=== PATIENT | male | born 1980 | race Caucasian/White ===

== ENCOUNTER 2016-06-21 21:23 | Emergency (ER) | payer OTHER ==
[2015-07-10 17:38] VITALS: BP 100/60
[2016-06-21] MEDS ORDERED: IV NORMAL SALINE 1,000ML 1,000 ML ONE (21:35)
[2016-06-21] MEDS ORDERED: fentaNYL PF 100 MCG/2 ML VIAL ONE ×2 (21:35→22:00)
[2016-06-21] MEDS ORDERED: IV NORMAL SALINE 1,000 ML BAG ONE (22:00)
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
== END 2016-06-21 21:34 ==
LOC: ER 21:23
DX: S86.812A Strain of other muscle(s) and tendon(s) at lower leg level, left leg, initial encounter (principal); S00.03XA Contusion of scalp, initial encounter; X58.XXXA Exposure to other specified factors, initial encounter; Y93.89 Activity, other specified; Y99.8 Other external cause status; Y92.89 Other specified places as the place of occurrence of the external cause
CPT/HCPCS: 96374; 96376; 99284; J3010; 70450; 72125; 73502; 73552; J7030